=== PATIENT | female | born 1985 | race Caucasian/White ===

== ENCOUNTER 2017-04-15 10:23 | Emergency (ER) | payer BC, OTHER ==
[~2017-04-15] VITALS: Ht 177.8 cm; Wt 73.9 kg
[~2017-04-15 10:23] MED LIST: BACLOFEN10 MG; BENTYL20 MG PO; CENTRUM COMPLE1 EACH PO; DEXILANT30 MG PO; PANTOPRAZOLE SO40 MG PO; ULTRAM50 MG PO; baclofen; hyoscyamine; vicodin
== END 2017-04-15 12:24 | disposition home or self-care (01) ==
LOC: ER 10:23
DX: O26.892 Other specified pregnancy related conditions, second trimester (principal); J01.00 Acute maxillary sinusitis, unspecified; Z3A.23 23 weeks gestation of pregnancy
CPT/HCPCS: 99283